=== PATIENT | female | born 1960 | race Caucasian/White ===

== ENCOUNTER 2018-09-30 06:35 | Day surgery (SDC) | payer OTHER ==
[2018-09-30] MEDS ORDERED: CEFAZOLIN 1 GM INJ (07:00)
[2018-09-30 07:45] LABS: ADD MAN DIFF? NO
[2018-09-30 07:57] LABS: ADD UMIC NO; UR ASCORBIC ACID NEGATIVE (NEGATIVE); UR BILIRUBIN (Dip) NEGATIVE (NEGATIVE); UR BLOOD (Dip) NEGATIVE (NEGATIVE); UR CLARITY CLEAR (CLEAR); UR COLOR STRAW (YELLOW); UR GLUCOSE (Dip) NEGATIVE (NEGATIVE); UR KETONES (Dip) NEGATIVE (NEGATIVE); UR LEUKOCYTE ESTERASE (Dip) NEGATIVE Leu/ul (NEGATIVE); UR NITRITE (Dip) NEGATIVE (NEGATIVE); UR SPECIFIC GRAVITY (Dip) 1.005 (1.003-1.030); UR TOTAL PROTEIN (Dip) NEGATIVE (NEGATIVE); UR UROBILINOGEN (Dip) NEGATIVE (NEGATIVE)
[2018-09-30 08:01] LABS: BASOPHILS % 0.7 % (0.0-2.0); EOSINOPHILS # 0.1 10^3/ul (0.0-0.5); EOSINOPHILS % 2.8 % (0.0-7.0); HEMATOCRIT 37.7 % (37.0-47.0); HEMOGLOBIN 12.8 g/dl (12.0-16.0); LYMPHOCYTES # 1.5 10^3/ul (0.8-2.9); LYMPHOCYTES % 34.2 % (15.0-51.0); MEAN CORPUSCULAR HEMOGLOBIN 31.5 pg (29.0-33.0); MEAN CORPUSCULAR VOLUME 92.9 fl (82.0-101.0); MEAN PLATELET VOLUME 10.7 fl (7.4-10.4); MONOCYTE # 0.3 10^3/ul (0.3-0.9); MONOCYTES % 7.8 % (0.0-11.0); NEUTROPHIL # 2.3 10^3/ul (1.6-7.5); NEUTROPHILS % 53.8 % (39.0-77.0); PLATELET COUNT 201 10^3/UL (140-415); RED BLOOD COUNT 4.06 10^6/ul (4.20-5.40); RED CELL DISTRIBUTION WIDTH 12.4 % (11.5-14.5)
[2018-09-30 08:01] LABS: WHITE BLOOD COUNT 4.2 10^3/ul (4.8-10.8)
[2018-09-30] MEDS ORDERED: ROCURONIUM 50 MG INJ (08:05)
[2018-09-30] MEDS ORDERED: GLYCOPYRROLATE 0.4 MG INJ (08:05)
[2018-09-30] MEDS ORDERED: LIDOCAINE 2% (SDV) 5 ML INJ (08:05)
[2018-09-30] MEDS ORDERED: NEOSTIGMINE 3 MG/3 ML SYRINGE (08:05)
[2018-09-30] MEDS ORDERED: PROPOFOL 20 ML (08:05)
[2018-09-30] MEDS ORDERED: FENTAnyl 50 MCG/ML VIAL (08:06)
[2018-09-30] MEDS ORDERED: MIDAZOLAM 1 MG/ML 2 ML INJ (08:06)
[2018-09-30] MEDS ORDERED: DEXAMETHASONE 4 MG/ML 1 ML INJ (08:07)
[2018-09-30] MEDS ORDERED: ONDANSETRON 4 MG INJ (08:07)
[2018-09-30 08:12] LABS: ALANINE AMINOTRANSFERASE 45 IU/L (13-69); ALBUMIN 4.5 g/dl (3.3-4.9); ALKALINE PHOSPHATASE 75 IU/L (42-121); ANION GAP 12 (5-13); ASPARTATE AMINO TRANSFERASE 39 IU/L (15-46); BILIRUBIN,INDIRECT 0.4 mg/dl (0-1.1); BILIRUBIN,TOTAL 0.4 mg/dl (0.2-1.3); BLOOD UREA NITROGEN 14 mg/dl (7-20); CALCIUM 9.3 mg/dl (8.4-10.2); CARBON DIOXIDE 27 mmol/L (21-31); CHLORIDE 101 mmol/L (97-110); CREATININE 0.49 mg/dl (0.44-1.00); Estimated GFR > 60 mL/min (>60); GLUCOSE 121 mg/dl (70-220); POTASSIUM 3.7 mmol/L (3.5-5.1); SODIUM 140 mmol/L (135-144)
[2018-09-30] MEDS ORDERED: ROPIVACAINE 0.5 % 30 ML VIAL (08:13)
[2018-09-30 08:19] LABS: HOLD TRANSMISSIONS 1
[2018-09-30] MEDS ORDERED: SUCCINYLCHOLINE CHLORIDE 100 MG/5 ML SYG IV (08:51)
[2018-09-30] MEDS ORDERED: SUGAMMADEX SODIUM 200 MG/2 ML VIAL IV (10:04)
[2018-09-30] MEDS ORDERED: hydrALAzine 20 MG INJ (11:11)
[2018-09-30] MEDS: ROPIVACAINE 0.5 % 30 ML VIAL (11:52)
[2018-09-30] MEDS: POLYMYXIN/BACITRACIN 1L IRRIG (11:52)
[2018-09-30] MEDS: POVIDONE IODINE 10% 28.4 GM OINT (11:53)
[2018-09-30] MEDS ORDERED: SOD CHLORIDE 0.9% 1,000 ML IV (14:13)
[2018-09-30] MEDS ORDERED: morphine 2 MG INJ IV (14:30)
[2018-09-30] MEDS ORDERED: OXYCODONE/ACETAMINOPHEN (5/325) TAB PO ×2 (14:30)
[2018-09-30] MEDS ORDERED: ONDANSETRON 4 MG INJ IV (14:30)
== END 2018-09-30 15:53 | disposition home or self-care (01) ==
LOC: SDS 06:35
DX: M25.872 Other specified joint disorders, left ankle and foot (principal); M25.372 Other instability, left ankle; M65.872 Other synovitis and tenosynovitis, left ankle and foot; I10 Essential (primary) hypertension; E78.5 Hyperlipidemia, unspecified
CPT/HCPCS: 27695; 80053; 81003; 85025